=== PATIENT | male | born 1950 | race Caucasian/White ===

== ENCOUNTER → 2016-05-23 | Outpatient (CLI) | payer OTHER ==
[~2016-05-23] MED LIST: ACETAMINOPHEN PO; ASPIRIN PO; FAMOTIDINE PO; FLONASE ALLERG9.9 ML INH; FLONASE16 GM; GLUCOPHAGE850 MG PO; LEVAQUIN PO; LIPITOR40 MG PO; LISINOPRIL PO; LISINOPRIL10 MG PO; LOPRESSOR PO; MULTIVITAMINS1 EAC2 PO; NEPHROCAPS CAPSU1 MG PO; NIFEREX-150150 MG PO; OXYCONTIN PO; SAW PALMETTO160 M1 PO; VITAMIN D31000 UNIT PO; ZITHROMAX PO; ZOCOR PO
--- NOTE | ~2016-05-23 | EKG ---
PATIENT: JOSEFINA PATEL UNIT #: [id number] Ventricular Rate: 65 BPM Atrial Rate: 65 BPM P-R Interval: 162 ms QRS Duration: 96 ms Q-T Interval: 408 ms QTC Calculation(Bezet): 424 ms P [place]: 24 degrees Calculated R [place]: 22 degrees Calculated T [place]: -48 degrees Diagnosis Line: Normal sinus rhythm Diagnosis Line: Inferior infarct , age undetermined Diagnosis Line: Nonspecific ST and T wave abnormality Diagnosis Line: Abnormal ECG Diagnosis Line: No previous ECGs available Diagnosis Line: Confirmed by ENRRIQUE DUNN MD ([id number]) on 05/25/2016 Diagnosis Line: 7:37:42 AM INTERPRETING MD: SHAUN NAIDU
[2016-05-23 08:16] LABS: HEMATOCRIT 50.1 % (38.0-50.0); HEMOGLOBIN 16.5 gm/dL (13.0-16.0); MEAN CELL VOLUME 97.2 FL (83-96); MEAN CORPUSCULAR HGB CONC 32.9 g/dL (30-36); MEAN PLATELET VOLUME 9.6 FL (6.5-11.5); RED BLOOD COUNT 5.15 X10e (3.90-5.60); RED CELL DISTRIBUTION WIDTH 13.3 % (11.0-15.5); WHITE BLOOD COUNT 7.8 X10e3 (4.0-10.5)
[2016-05-23 08:29] LABS: PARTIAL THROMBOPLASTIN TIME 26.9 SECONDS (23.5-31.3)
[2016-05-23 08:50] LABS: BLOOD UREA NITROGEN 10 mg/dL (9-23); BUN/CREATININE RATIO 14.28; CALCIUM SERUM 8.9 mg/dL (8.4-10.2); CARBON DIOXIDE 33 mmol/L (22-31); CHLORIDE 96 mmol/L (100-111); CREATININE SERUM 0.7 mg/dL (0.6-1.4); GLOM FILT RATE Estimated ABOVE60 mL/min (>60); GLUCOSE FASTING 121 mg/dL (70-110); POTASSIUM 4.3 mmol/L (3.5-5.1); SODIUM 137 mmol/L (135-145)
== END | disposition home or self-care (01) ==
LOC: CCVL 07:44
PROVIDERS: Internal Medicine Cardiovascular Disease
DX: T82.218A Other mechanical complication of coronary artery bypass graft, initial encounter (principal); I25.118 Atherosclerotic heart disease of native coronary artery with other forms of angina pectoris; I25.2 Old myocardial infarction; J44.9 Chronic obstructive pulmonary disease, unspecified; I10 Essential (primary) hypertension; E11.9 Type 2 diabetes mellitus without complications; Z79.84 Long term (current) use of oral hypoglycemic drugs; F17.210 Nicotine dependence, cigarettes, uncomplicated; I08.1 Rheumatic disorders of both mitral and tricuspid valves; I50.9 Heart failure, unspecified; Z79.82 Long term (current) use of aspirin
CPT/HCPCS: 36415; 80048; 85027; 85610; 85730; 93005; C1769; C1887; C1894; J1644; J2250; J3010

== ENCOUNTER 2016-06-02 15:42 | Emergency (ER) | payer OTHER ==
--- NOTE | ~2016-06-02 | CR252 ---
[facility] A Service of [facility] & [facility] RADIOLOGY TEXT RESULTS PATIENT: JOSEFINA PATEL LOCATION: CFTX : 50 UNIT #: [id number] AGE: [address]: Melissa Arroyo SEX: M ORDER DR: [id number] [facility] [address] [place], [place] [address] [id number] E MR#: [id number] Acc #: [id number] NAME: JOSEFINA PATEL : 1950 SEX: M STUDY DATE/TIME: 06/02/2016 14:28 UNIT: [facility] ROOM: STUDY DESCRIPTION: CR Tibia and Fibula 2 Views Lt Attending Physician: Melissa Arroyo P.A.-C. Ordering Physician: Melissa Arroyo P.A.-C. Primary Care Physician: Tim Wild M.D. MEDICAL IMAGING REPORT This report is preliminary unless electronic signature is present EXAM Left tibia and fibula HISTORY Erythema and redness. Nonhealing wound. FINDINGS 2 views of the left tibia and fibula without comparison. There is no acute fracture or dislocation. Alignment at the knee and ankle is anatomic. No foreign body. IMPRESSION Negative left tibia and fibula. Dictated by... Boris Tan M.D. THIS IS AN ELECTRONICALLY VERIFIED REPORT Boris Tan M.D. at 06/03/2016 10:45 AM Julianne/suleman TD: 06/03/2016 10:34 JOB #: [id number] MEDICAL IMAGING REPORT Page 1 of 1 COPY
--- NOTE | ~2016-06-02 | US85 ---
[facility] A Service of [facility] & [facility] RADIOLOGY TEXT RESULTS PATIENT: JOSEFINA PATEL LOCATION: CFTX : 50 UNIT #: [id number] AGE: [address]: Melissa Arroyo SEX: M ORDER DR: [id number] [facility] [address] [place], [place] [address] [id number] E MR#: [id number] Acc #: [id number] NAME: JOSEFINA PATEL : 1950 SEX: M STUDY DATE/TIME: 06/02/2016 14:58 UNIT: [facility] ROOM: STUDY DESCRIPTION: [employer] [facility] [employer] Attending Physician: Melissa Arroyo P.A.-C. Ordering Physician: Melissa Arroyo P.A.-C. Primary Care Physician: Tim Wild M.D. MEDICAL IMAGING REPORT This report is preliminary unless electronic signature is present EXAM Ultrasound lower extremity venous Doppler duplex unilateral study HISTORY Left leg pain for a week. Four stents in the heart 9 days ago. FINDINGS Real-time ultrasonography of the left lower extremity deep venous system was performed and 2-D loyola-scale and compression imaging and color flow Doppler imaging and waveform analysis. Normal flow and compressibility is seen throughout the left lower extremity deep venous system. The visualized greater saphenous vein is also unremarkable. IMPRESSION No evidence for acute appearing deep venous thrombosis left lower extremity deep venous system. Dictated by... Ying Lu M.D. THIS IS AN ELECTRONICALLY VERIFIED REPORT Ying Lu M.D. at 06/03/2016 11:09 PM Dora TD: 06/03/2016 12:15 JOB #: [id number] MEDICAL IMAGING REPORT Page 1 of 1 COPY
[2016-06-02 15:02] LABS: BASOPHIL% 0.5 % (0-2.5); EOSINOPHIL# 0.5 X10e3 (0-0.7); EOSINOPHIL% 5.4 % (0.0-7.0); HEMATOCRIT 46.2 % (38.0-50.0); HEMOGLOBIN 15.3 gm/dL (13.0-16.0); LYMPHOCYTE# 1.3 X10e3 (1.0-3.5); LYMPHOCYTE% 15.4 % (17.0-45.0); MEAN CELL VOLUME 97.2 FL (83-96); MEAN CORPUSCULAR HEMOGLOBIN 32.1 PG (28-34); MEAN CORPUSCULAR HGB CONC 33.1 g/dL (30-36); MONOCYTE# 0.8 X10e3 (0-1.0); MONOCYTE% 9.8 % (3.0-12.0); NEUTROPHIL# 5.9 X10e3 (1.5-7.1); NEUTROPHIL% 68.9 % (40-75); PLATELET COUNT 195 X10e3 (140-420); RED BLOOD COUNT 4.75 X10e (3.90-5.60); RED CELL DISTRIBUTION WIDTH 12.9 % (11.0-15.5); WHITE BLOOD COUNT 8.6 X10e3 (4.0-10.5)
[2016-06-02 15:03] LABS: DIFF IND NO
[2016-06-02 15:28] LABS: BUN/CREATININE RATIO 15.55; CALCIUM SERUM 9.2 mg/dL (8.4-10.2); CREATININE SERUM 0.9 mg/dL (0.6-1.4); GLOM FILT RATE Estimated 89.3 mL/min (>60); POTASSIUM 4.7 mmol/L (3.5-5.1)
== END 2016-06-02 16:40 | disposition home or self-care (01) ==
LOC: CFTX 15:42
PROVIDERS: Physician Assistant
DX: L03.116 Cellulitis of left lower limb (principal); E78.5 Hyperlipidemia, unspecified; I10 Essential (primary) hypertension; E11.9 Type 2 diabetes mellitus without complications; Z79.82 Long term (current) use of aspirin; Z79.899 Other long term (current) drug therapy
CPT/HCPCS: 36415; 73590; 80048; 85025; 93971; 96374; 99284; J0696